=== PATIENT | female | born 1935 | race Asian ===

== ENCOUNTER 2021-12-21 06:54 | Emergency (ER) | payer OTHER ==
[2021-12-21 07:07] VITALS: TEMP 97.5; BMI 28.3
[2021-12-21] MEDS ORDERED: ACETAMINOPHEN 1000 MG/100 ML BAG IVPB ONE ×2 (07:47→08:58)
[2021-12-21] MEDS ORDERED: ACETAMINOPHEN INJECTION 100 ML IVPB ONE (07:49)
[2021-12-21 08:46] LABS: BASO % 0.7 % (0-2.0); EOS % 0.9 % (0-4.5); HEMATOCRIT 34.5 % (32.4-45.2); HEMOGLOBIN 11.4 GM/dL (10.7-15.3); LYMPH % 45.9 % (8-40); MCH 28.9 pg (25.7-33.7); MCHC 33.1 g/dl (32.0-36.0); MEAN CELL VOLUME 87.2 fl (80-96); MEAN PLT VOLUME 6.8 fl (7.5-11.1); MONO % 8.2 % (3.8-10.2); NEUT % 44.3 % (42.8-82.8); PLATELET COUNT 297 10^3/uL (134-434); RBC 3.96 M/mm3 (3.60-5.2); RDW 15.9 % (11.6-15.6); WHITE BLOOD COUNT 5.7 K/mm3 (4.0-10.0)
[2021-12-21 08:54] LABS: INR 0.91 (0.83-1.09); PROTHROMBIN TIME (PATIENT) 10.4 SEC (9.7-13.0)
[2021-12-21 08:57] LABS: ACTIVATED PTT 29.3 SECONDS (25.2-36.5)
[2021-12-21] MEDS ORDERED: ONDANSETRON 4 MG/2 ML VIAL IVPUSH ONE (08:58)
[2021-12-21 09:18] LABS: ALBUMIN 3.4 g/dl (3.4-5.0); CALCIUM 9.4 mg/dL (8.5-10.1)
[2021-12-21 09:19] LABS: BLOOD UREA NITROGEN 19.9 mg/dL (7-18)
[2021-12-21 09:23] LABS: BILIRUBIN,TOTAL 0.4 mg/dL (0.2-1); TOT PROT 6.3 g/dl (6.4-8.2)
[2021-12-21] MEDS ORDERED: NICARDIPINE 25 MG in DEXTROSE 5%-WATER - 240 ML IVPB SCH (10:45)
[2021-12-21 11:45] VITALS: BP 169/71; PULSE 63
[2021-12-22 12:06] LABS: SARS-CoV-2 NAA Not Detected (Not Detected)
== END 2021-12-21 11:30 | disposition short-term general hospital (02) ==
LOC: JER 06:54
PROC: 3E0333Z Introduction of Anti-inflammatory into Peripheral Vein, Percutaneous Approach (ICD-10-PCS; principal; 2021-12-21)
PROC: 3E033GC Introduction of Other Therapeutic Substance into Peripheral Vein, Percutaneous Approach (ICD-10-PCS; 2021-12-21)
DX: S06.5X0A Traumatic subdural hemorrhage without loss of consciousness, initial encounter (principal); W01.0XXA Fall on same level from slipping, tripping and stumbling without subsequent striking against object, initial encounter
CPT/HCPCS: 36415; 70450-TC; 70486-TC; 71045-TC-FY; 72125-TC; 72170-TC-FY; 73502-TC-LT-FY; 73552-TC-LT-FY; 80053; 82550; 84484; 85025; 85610; 85730; 86850; 86900; 86901; 93005; 93010; 99285-25; C9803-CS; U0003; U0005